=== PATIENT | female | born 1985 | race Hispanic/Latino ===

== ENCOUNTER 2021-03-20 01:25 | Emergency (ER) | payer OTHER, MEDICAID, SELFPAY ==
[2021-03-20 01:34] VITALS: BP 121/62; PULSE 95; RESP 22; TEMP 36.9; O2SAT 100
--- NOTE | 2021-03-20 01:34 | DI.US.S_ITS ---
PROCEDURE: US OB LIMITED INDICATIONS: PAIN OUTSIDE/PRIOR DATING DATA: Last menstrual period (LMP): 11/23/2020. LMP-based estimated date of delivery (DONYA): 08/30/2021. First dating scan (date and location): 03/10/2021. Estimated date of delivery (DONYA) from first dating scan: 09/04/2021. The calculations are made using the ultrasound DONYA of 09/04/2021. TECHNIQUE: Real-time scanning was performed of the fetus, with image documentation. COMPARISON: [facility], US, US OB GROWTH, 03/10/2021, 9:55. FINDINGS: A single living intrauterine gestation is present. Presentation: Variable. Placenta: Placental position is anterior, without previa. Amniotic fluid index: 11.7 cm, normal range is 5-24 cm. heart rate: 149 beats per minute. Maternal cervical canal: Not evaluated. Normal lower limit is 2.5 cm. Estimated gestational age from initial scan: 16 weeks 0 days. IMPRESSION: 1. Single live intrauterine . 2. No evidence of abruption. The above findings are concordant with preliminary report. Dictated by: Courtney Bro M.D. on 03/20/2021 at 8:15 Approved by: Courtney Bro M.D. on 03/20/2021 at 8:20
--- NOTE | 2021-03-20 01:41 | ED.PREGNANCY ---
HPI - General Chief complaint: OB/Uterine Contractions Stated complaint: 15 weeks /abd pain x1 day Time Seen by Provider: 03/20/21 01:34 History of Present Illness HPI Narrative: Patient is a 35-year-old female currently 15 weeks presenting with severe abdominal and vaginal pain. She said it started suddenly. She has no vaginal bleeding. She has some mild right-sided flank pain. She does have a history of kidney stones but this does not feel like that. She denies any nausea or vomiting. Pain is quite unbearable. No fever or chills. She says she feels like she has to push. She has had 4 other children this is not typical of pregnancies. She is being seen with Ob. Related Data Previous Rx's Medication Instructions Recorded cephalexin 500 mg capsule 500 mg PO BID 7 Days #14 cap 03/20/21 hydrocodone 5 mg-acetaminophen 325 1 tab PO Q6H PRN #10 tab 03/20/21 mg tablet ondansetron 4 mg disintegrating 4 mg PO Q8H PRN #10 tab 03/20/21 tablet Allergies Allergy/AdvReac Type Severity Reaction Status Date / Time No Known Drug Allergies Allergy Verified 03/20/21 01:44 Review of Systems Review of Systems Narrative: GENERAL: Denies chills, fatigue, malaise, fever, sweats, travel HEENT: Denies sinus pain, ear pain, sore throat, difficulty swallowing, neck pain RESPIRATORY: Denies dyspnea, cough, wheezing, hemoptysis, sputum. CARDIOVASCULAR: Denies chest pain, palpitations, orthopnea, edema GASTROINTESTINAL: Denies nausea, vomiting, abdominal pain, diarrhea, constipation, melena. : Denies dysuria, frequency, incontinence, hematuria, urinary retention, flank pain. OB: See HPI MUSCULOSKELETAL: Denies weakness, joint pain, or bony pain SKIN: No rash, no erythema, no pruritus NEUROLOGIC: Denies weakness, dizziness, headache, numbness, change in speech, confusion PSYCHIATRIC: No concerning psychosocial issues. 12 point review of systems is negative except for those stated above and HPI Exam Initial Vital Signs Initial Vital Signs: Vital Signs Temperature 98.4 F 03/20/21 01:34 Pulse Rate 95 H 03/20/21 01:34 Respiratory Rate 22 03/20/21 01:34 Blood Pressure 121/62 03/20/21 01:34 Pulse Oximetry 100 03/20/21 01:34 GENERAL: Alert 35-year-old female appears in pain HEENT: Head atraumatic,EOMI, pupils reactive, face symmetric, moist mucous membranes CARDIOVASCULAR: Regular rate and rhythm without murmurs, rubs or gallops. RESPIRATORY: Breath sounds equal bilaterally, no wheezes rales or rhonchi. ABDOMEN: Soft, nontender. Normoactive bowel sounds all 4 quadrants. No guarding or rebound. No right upper quadrant : Minimal red CVA tenderness EXTREMITIES: Normal range of motion, no clubbing or edema. Neurovascularly intact NEUROLOGICAL: Alert and oriented x4.Normal gait and speech. SKIN: Warm, dry, no laceration, no petechiae, no rashes or lesions. Course Orders Ordered: ED Orders 03/20/21 01:34 US OB limited Stat 03/20/21 01:55 CBC Auto Diff [Complete Blood Count AUTO DIFF] Stat CMP [Comprehensive Metabolic Panel] Stat HCG Quantitative /Beta subunit Stat Urinalysis and Microscopic Stat Urine Culture Stat 03/20/21 01:58 US abdomen limited Stat Discontinued Medications Hydrocodone Bitart/Acetaminophen (Hydrocodone/Acet 5/325 Prepack) [facility] Stop: 03/20/21 03:46 Last Admin: 03/20/21 04:00 Dose: 1 bottle Documented by: ADRYAN Sodium Chloride (Normal Saline 0.9%) 1,000 mls @ 1,000 mls/hr IV BOLUS ONE Stop: 03/20/21 02:33 Last Infusion: 03/20/21 03:30 Dose: 0 mls/hr Documented by: Admin: 03/20/21 02:22 Dose: 1,000 mls/hr Documented by: ADRYAN Morphine Sulfate (Morphine 2 Mg/Ml Inj) 2 mg IV NOW ONE Stop: 03/20/21 02:20 Last Admin: 03/20/21 02:22 Dose: 2 mg Documented by: ADRYAN Ondansetron HCl (Ondansetron 4 Mg/2 Ml Inj) 4 mg IV NOW ONE Stop: 03/20/21 02:36 Last Admin: 03/20/21 02:37 Dose: 4 mg Documented by: ADRYAN Ondansetron HCl (Ondansetron 4 Mg Odt Prepack) 1 bottle MISC SEEINSTR ONE Stop: 03/20/21 03:46 Last Admin: 03/20/21 04:00 Dose: 1 bottle Documented by: ADRYAN Vital Signs Vital signs: Vital Signs - 8 hr 03/20/21 01:34 03/20/21 02:30 03/20/21 04:03 Temperature 98.4 F Pulse Rate 95 H 77 90 Respiratory Rate 22 18 18 Blood Pressure 121/62 113/67 102/57 L Pulse Oximetry 100 99 100 MDM - OB/Uterine Contractions Lab Data Result diagrams: 03/20/21 01:55 03/20/21 01:55 Labs: Lab Results 03/20/21 03/20/21 03/20/21 Range/Units 01:55 01:55 01:55 WBC 11.2 H (4.5-11.0) X10^3/uL RBC 3.72 L (4.0-5.2) X10^6/uL Hgb 11.7 L (12.0-16.0) g/dL Hct 34.4 L (36-46) % MCV 92.5 (80-100) fL MCH 31.5 (26-34) PG MCHC 34.0 (30-36) % RDW 12.7 (11.6-14.8) % Plt Count 272 (150-400) X10^3/uL Neut % (Auto) 68.8 (50-75) % Lymph % (Auto) 25.1 (25-40) % [place] % (Auto) 4.6 (3-14) % Eos % (Auto) 1.1 L (2-4) % Baso % (Auto) 0.4 (0-2) % Neut # (Auto) 7700 H (1335-9997) /uL Lymph # (Auto) 2800 (5140-2882) /uL [place] # (Auto) 500 (0-900) /uL Eos # (Auto) 100 (0-450) /uL Baso # (Auto) 0 (0-100) /uL Sodium 135 L (137-145) mmol/L Potassium 3.9 (3.4-5.1) mmol/L Chloride 107 (98-107) mmol/L Carbon Dioxide 24 (22-32) mmol/L BUN 8 (7-17) mg/dL Creatinine 0.43 L (0.52-1.04) mg/dL Estimated GFR > 60.0 (>60) mL/min BUN/Creatinine Ratio 18.6 (6-22) Glucose 112 H (70-100) mg/dL Calcium 9.4 (8.4-10.2) mg/dL Total Bilirubin 0.2 (0.2-1.3) mg/dL AST 19 (14-36) IU/L ALT 10 (<35) IU/L Alkaline Phosphatase 54 (38-126) U/L Total Protein 7.2 (6.3-8.2) g/dL Albumin 4.0 (3.5-5.0) g/dL Globulin 3.2 (1.7-4.1) g/dL Albumin/Globulin Ratio 1.3 (1.0-2.8) HCG, Quant 58624 mIU/mL Urine Color Yellow Urine Appearance Slightly cloudy Urine pH 6.5 (4.5-8.0) Ur Specific [place] 1.015 (1.000-1.035) Urine Protein Negative (Negative) Urine Glucose (UA) Negative (Negative) g/dL Urine Ketones Negative (NEGATIVE) Urine Occult Blood 3+ H (Negative) Urine Nitrate Negative (Negative) Urine Bilirubin Negative (NEGATIVE) Urine Urobilinogen 0.2 (0.2) E.U./dL Ur Leukocyte Esterase Negative (NEGATIVE) Urine RBC 1-5/hpf (0-5/HPF) Urine WBC 1-5/hpf (0-5/HPF) Ur Squamous Epith Cells 1-5 /hpf (0-5/HPF) Urine Bacteria Many (>30) H (None) Ur Culture Indicated? Specimen cultured Imaging Data US - abdomen: Radiologist's Impression: Preliminary report. Moderate right hydronephrosis no urolithiasis gallbladder normal no Jackson sign US - OB: Radiologist's Impression: Preliminary report single live intrauterine gestation 16 weeks 0 days. heart rate 149 MDM Narrative Medical decision making narrative: Patient initially and quite a bit of pain some right flank pain radiating down into her groin area. She has had kidney stones previously this does feel like her prior kidney stone. Pain is much better with morphine. Clinically she seems to be having a stone although not confirmed by ultrasound. Urine does show some leukocytes and bacteria will treat her for UTI as well. Blood work is overall reassuring. At this time recommend conservative treatment with pain management at home and return as needed Discharge Plan Departure Patient Disposition: Home Clinical Impression: UTI (urinary tract infection) in in second trimester, Kidney stones Instructions: DI for Kidney Stones, DI for Urinary Tract Infection (UTI) Activity Restrictions/Additional Instructions: *You have been diagnosed with it is presumed that he have a kidney stone and bladder infection *What to do: Increase fluid intake. *Continue to take medications as directed [place] 1-2 tablets every 6 hours if needed for severe pain Zofran 4 mg every 8 hours if needed Keflex 500 mg twice a day for 7 days *Follow up with your primary care provider in 2-3 days or call [phone] *Return to ER if you should have increasing pain persistent vomiting inability to tolerate fluids or any new, worsening or concerning symptoms Prescriptions: New cephalexin 500 mg capsule 500 mg PO BID 7 Days Qty: 14 0RF hydrocodone-acetaminophen 5-325 mg tablet 1 tab PO Q6H PRN (Reason: pain) Qty: 10 0RF ondansetron 4 mg tablet,disintegrating 4 mg PO Q8H PRN (Reason: nausea and vomiting) Qty: 10 0RF
--- NOTE | 2021-03-20 01:58 | DI.US.S_ITS ---
PROCEDURE: US ABDOMEN LIMITED INDICATIONS: RIGHT FLANK PAIN TECHNIQUE: Real-time scanning was performed of the abdominal and retroperitoneal organs, with image documentation. COMPARISON: [facility], CT, CT KUB, 01/07/2019, 3:16. [facility], US, US OB LIMITED, 03/20/2021, 2:03. [facility], US, US OB GROWTH, 03/10/2021, 9:55. FINDINGS: Liver: Liver is normal in size and homogeneous in echotexture. Gallbladder: Gallbladder demonstrates no stones. Wall thickness is within normal limits measuring 1.9 mm. Biliary ducts: Intrahepatic bile ducts are non-dilated. Extrahepatic bile duct caliber measures 4.2 mm. Normal is 6-7 mm or less in diameter, or 10 mm or less post-cholecystectomy. Spleen: Spleen is normal in size and homogeneous in echotexture. Kidneys: Right kidney measures 13.1 cm long. There is moderate hydronephrosis. No visualized stones. Bladder is not visualized on current exam. However, in OB ultrasound exam of 03/20/2021, the bladder is decompressed without measurable fluid. IMPRESSION: 1. Moderate right hydronephrosis. No stone is identified. Bladder is decompressed as in identified on prior exam as detailed above. It is ureteral stone cannot be excluded. 2. Intrauterine is identified in OB ultrasound of 03/20/2021. Please see report for further details. The above findings are concordant with preliminary report. Dictated by: Courtney Bro M.D. on 03/20/2021 at 8:24 Approved by: Courtney Bro M.D. on 03/20/2021 at 9:03
[2021-03-20 02:13] LABS: Bilirubin Urine UA NEGATIVE (NEGATIVE); Color Urine UA YELLOW; Glucose Urine UA NEGATIVE (Negative); Ketones Urine UA NEGATIVE (NEGATIVE); Leukocyte Esterase Urine UA NEGATIVE (NEGATIVE); Nitrite Urine UA NEGATIVE (Negative); Occult Blood Urine UA 3+ (Negative); Protein Urine UA NEGATIVE (Negative); Specific Gravity Urine UA 1.015 (1.000-1.035); Urobilinogen Urine UA 0.2 E.U./dL (0.2)
[2021-03-20 02:15] LABS: Add Manual Diff / Slide Review NO; Basophils Absolute Auto 0 /uL (0-100); Basophils Percent Auto 0.4 % (0-2); Eosinophils Absolute Auto 100 /uL (0-450); Eosinophils Percent Auto 1.1 % (2-4); Hematocrit 34.4 % (36-46); Hemoglobin 11.7 g/dL (12.0-16.0); Lymphocytes Absolute Auto 2800 /uL (1100-4500); Lymphocytes Percent Auto 25.1 % (25-40); Mean Corpuscular Hemoglobin 31.5 PG (26-34); Mean Corpuscular Volume 92.5 fL (80-100); Monocytes Absolute Auto 500 /uL (0-900); Monocytes Percent Auto 4.6 % (3-14); Neutrophils Absolute Auto 7700 /uL (1500-7000); Neutrophils Percent Auto 68.8 % (50-75); Platelet Count 272 X10^3/uL (150-400); Red Blood Cell Count 3.72 X10^6/uL (4.0-5.2); Red Cell Distribution Width 12.7 % (11.6-14.8); White Blood Cell Count 11.2 X10^3/uL (4.5-11.0)
[2021-03-20 02:18] LABS: Alanine Aminotransferase 10 IU/L (<35); Albumin Globulin Ratio 1.3 (1.0-2.8); Alkaline Phosphatase 54 U/L (38-126); Aspartate Aminotransferase 19 IU/L (14-36); BUN Creatinine Ratio 18.6 (6-22); Bilirubin Total 0.2 mg/dL (0.2-1.3); Blood Urea Nitrogen 8 mg/dL (7-17); Calcium 9.4 mg/dL (8.4-10.2); Carbon Dioxide 24 mmol/L (22-32); Chloride 107 mmol/L (98-107); Estimated Glomerular Filt Rate > 60.0 mL/min (>60); Globulin 3.2 g/dL (1.7-4.1); Glucose 112 mg/dL (70-100); HEMOLYSIS 17 (0-50); Potassium 3.9 mmol/L (3.4-5.1); Sodium 135 mmol/L (137-145); Total Protein 7.2 g/dL (6.3-8.2)
[2021-03-20] MEDS: SODIUM CHLORIDE 0.9% 1,000 ML 1000 ML IV (02:22)
[2021-03-20] MEDS: MORPHINE 2 MG/ML INJ IV (02:22)
[2021-03-20 02:23] LABS: Appearance Urine UA Slightly Cloudy; pH Urine UA 6.5 (4.5-8.0)
[2021-03-20 02:28] LABS: Bacteria Urine Many (>30); Culture Indicated Urine Specimen Cultured; RBC Urine 1-5/HPF (0-5/HPF); Squamous Epithelial Cell Urine 1-5 /HPF (0-5/HPF); WBC Urine 1-5/HPF (0-5/HPF)
[2021-03-20 02:30] VITALS: BP 113/67; PULSE 77; RESP 18; O2SAT 99
[2021-03-20 02:35] LABS: HCG Quantitative /Beta subunit 22427 mIU/mL
[2021-03-20] MEDS: ONDANSETRON 4 MG/2 ML INJ IV (02:37)
[2021-03-20] MEDS: HYDROCODONE/ACET 5/325 PREPACK 1 BOTTLE MISC (04:00)
[2021-03-20] MEDS: ONDANSETRON 4 MG ODT PREPACK 1 BOTTLE MISC (04:00)
[2021-03-20 04:03] VITALS: BP 102/57; PULSE 90; RESP 18; O2SAT 100
== END 2021-03-20 04:06 | disposition home or self-care (01) ==
PROVIDERS: Emergency Provider Emergency Medicine
DX: O23.42 Unspecified infection of urinary tract in pregnancy, second trimester (principal); N39.0 Urinary tract infection, site not specified; O26.892 Other specified pregnancy related conditions, second trimester; N20.0 Calculus of kidney; Z3A.15 15 weeks gestation of pregnancy
CPT/HCPCS: 36415; 76705; 76815; 80053; 81001; 84702; 85025; 87086; 96361; 96374; 96375; 99284; J2270; J2405